=== PATIENT | female | born 1980 | race Caucasian/White ===

== ENCOUNTER → 2020-08-14 08:52 | Outpatient (CLI) | payer OTHER, MEDICAID, SELFPAY ==
[2020-08-14 20:18] LABS: Thyroid Stimulating Hormone 6.39 uIU/mL (0.47-4.68)
== END ==
PROVIDERS: PCP Physician Assistant; Referring Provider Physician Assistant; Visit Provider Physician Assistant
DX: E03.9 Hypothyroidism, unspecified (principal)
CPT/HCPCS: 84443

== ENCOUNTER → 2020-09-26 10:25 | Outpatient (CLI) | payer OTHER, MEDICAID, SELFPAY ==
[2020-09-26 20:02] LABS: Thyroid Stimulating Hormone 0.621 uIU/mL (0.47-4.68)
== END ==
PROVIDERS: PCP Physician Assistant; Visit Provider Physician Assistant
DX: E03.9 Hypothyroidism, unspecified (principal); R79.89 Other specified abnormal findings of blood chemistry
CPT/HCPCS: 84443

== ENCOUNTER → 2021-04-13 08:45 | Outpatient (CLI) | payer OTHER, MEDICAID, SELFPAY ==
[2021-04-13 19:16] LABS: Free T3, Triiodothyronine Free 3.58 pg/mL (2.77-5.27)
[2021-04-13 19:30] LABS: TSH w/ Reflex to FT4 1.86 uIU/mL (0.47-4.68)
== END ==
PROVIDERS: PCP Physician Assistant Medical; Visit Provider Physician Assistant Medical
DX: E03.9 Hypothyroidism, unspecified (principal); R79.89 Other specified abnormal findings of blood chemistry
CPT/HCPCS: 84443; 84481

== ENCOUNTER → 2021-04-19 08:19 | Outpatient (CLI) | payer OTHER, MEDICAID, SELFPAY ==
[2021-04-19 20:52] LABS: COVID19 - ORCAS (NP or Nasal) Negative (Negative)
== END ==
PROVIDERS: PCP Physician Assistant Medical; Referring Provider Family Medicine; Visit Provider Family Medicine
DX: Z20.822 Contact with and (suspected) exposure to COVID-19 (principal)
CPT/HCPCS: C9803; U0003

== ENCOUNTER → 2022-03-18 15:16 | Outpatient (CLI) | payer OTHER, SELFPAY ==
[2022-03-18 19:48] LABS: Add Manual Diff / Slide Review NO; Basophils Absolute Auto 100 /uL (0-100); Eosinophils Absolute Auto 100 /uL (0-450); Eosinophils Percent Auto 1.7 % (2-4); Hematocrit 35.3 % (36-46); Hemoglobin 11.9 g/dL (12.0-16.0); Lymphocytes Absolute Auto 2100 /uL (1100-4500); Lymphocytes Percent Auto 36.2 % (25-40); Mean Corpuscular HGB Conc 33.6 % (30-36); Mean Corpuscular Hemoglobin 29.4 PG (26-34); Mean Corpuscular Volume 87.6 fL (80-100); Monocytes Absolute Auto 300 /uL (0-900); Monocytes Percent Auto 5.6 % (3-14); Neutrophils Absolute Auto 3200 /uL (1500-7000); Neutrophils Percent Auto 55.5 % (50-75); Platelet Count 301 X10^3/uL (150-400); Red Blood Cell Count 4.03 X10^6/uL (4.0-5.2); White Blood Cell Count 5.7 X10^3/uL (4.5-11.0)
[2022-03-18 20:38] LABS: TSH w/ Reflex to FT4 0.29 uIU/mL (0.47-4.68)
[2022-03-19 13:38] LABS: Free T4, Direct Thyroxine 0.77 ng/dL (0.78-2.19)
[2022-03-19 14:33] LABS: HEMOLYSIS < 15 (0-50); Iron 69 ug/dL (37-170)
[2022-03-19 14:57] LABS: Percent Iron Saturation 21 % (15-50); Total Iron Binding Capacity 331 ug/dL (265-497); Transferrin 265 mg/dL (206-381)
[2022-03-19 15:37] LABS: Ferritin 23 ng/mL (6-137)
[2022-03-19 15:51] LABS: Vitamin B12 391 pg/mL (239-931)
[2022-03-19 15:55] LABS: Alanine Aminotransferase 20 IU/L (<35); Albumin 4.8 g/dL (3.5-5.0); Albumin Globulin Ratio 1.5 (1.0-2.8); Alkaline Phosphatase 52 U/L (38-126); Aspartate Aminotransferase 24 IU/L (14-36); BUN Creatinine Ratio 20.3 (6-22); Bilirubin Total 0.2 mg/dL (0.2-1.3); Blood Urea Nitrogen 13 mg/dL (7-17); Calcium 9.9 mg/dL (8.4-10.2); Carbon Dioxide 22 mmol/L (22-32); Chloride 111 mmol/L (98-107); Estimated Glomerular Filt Rate > 60 mL/min (>60); Globulin 3.1 g/dL (1.7-4.1); Glucose 88 mg/dL (70-100); HEMOLYSIS < 15 (0-50); Potassium 4.5 mmol/L (3.4-5.1); Sodium 146 mmol/L (137-145); Total Protein 7.9 g/dL (6.3-8.2)
== END ==
PROVIDERS: PCP Physician Assistant Medical; Visit Provider Physician Assistant
DX: E03.9 Hypothyroidism, unspecified (principal); D64.9 Anemia, unspecified
CPT/HCPCS: 80053; 82607; 82728; 83540; 83550; 84439; 84443; 85025

== ENCOUNTER → 2022-03-30 10:42 | Outpatient (CLI) | payer OTHER, SELFPAY ==
--- NOTE | 2022-03-30 10:43 | DI.MG.S_ITS ---
BILATERAL DIGITAL SCREENING MAMMOGRAM 3D/2D WITH CAD: 03/30/2022 CLINICAL: Routine screening. Family history of breast cancer. No prior exams were available for comparison. Both breasts are extremely dense, which lowers the sensitivity of mammography (category d />75% glandular tissue). Current study was also evaluated with a Computer Aided Detection (CAD) system. No significant masses, calcifications, or other findings are seen in either breast. IMPRESSION: NEGATIVE There is no mammographic evidence of malignancy. A 1 year screening mammogram is recommended. Based on Tyrer-Cuzick model (a risk assessment model), the patient's lifetime risk is 40.7% and her 10 year risk is 6.1%. If a patient has an elevated risk, a more comprehensive evaluation should be considered and/or a referral to a genetic counselor. The [employer], [employer], and NCCN Guidelines advise the consideration of Breast MRI as an adjunct to screening mammography in patients whose Lifetime risk to develop breast cancer is 20% or higher. This exam was interpreted at Station ID: [id number]. NOTE: For mammograms, a report in lay terms will be sent to the patient. Approximately 15% of breast malignancies will not be visualized mammographically. In the management of a palpable breast mass, a negative mammogram must not discourage biopsy of a clinically suspicious lesion. Electronically Signed By: Zeb lin/marques:04/01/2022 09:38:51 letter sent: Normal Exam ACR BI-RADS Category 1: Negative 3341F
== END ==
PROVIDERS: PCP Physician Assistant Medical; Referring Provider Physician Assistant; Visit Provider Physician Assistant
DX: Z12.31 Encounter for screening mammogram for malignant neoplasm of breast (principal); Z80.3 Family history of malignant neoplasm of breast
CPT/HCPCS: 77063; 77067

== ENCOUNTER 2022-12-12 09:04 | Day surgery (SDC) | payer OTHER, SELFPAY ==
[2022-12-12 09:29] VITALS: BP 108/72; PULSE 75; RESP 16; TEMP 35.9; O2SAT 99; BMI 22.7
--- NOTE | 2022-12-12 09:33 | P.HP_ITS ---
History of Present Illness History of Present Illness Date Patient Seen: 12/12/22 Time Patient Seen: 09:33 Chief complaint: SDC Narrative: Case is a 42-year-old woman who is here for a screening colonoscopy. She has never had 1 before. Her grandfather had colon cancer. [facility] Social History (Updated 05/10/21 @ 14:13 by Margarette Arce PA-C) Smoking Status: Never smoker Meds Home Medications and Allergies Home Medications Medication Instructions Recorded Confirmed Type levothyroxine 125 mcg tablet 125 mcg PO DAILY 12/12/22 12/12/22 History liothyronine 10 mcg/mL intravenous 10 mcg PO DAILY 12/12/22 12/12/22 History solution Allergies Allergy/AdvReac Type Severity Reaction Status Date / Time No Known Drug Allergies Allergy Verified 12/12/22 09:17 Exam Const General: healthy appearing Assessment & Plan Assessment and plan (1) Colon cancer screening: Status: Acute Plan Case is a 42 year old woman who is here for a colonoscopy for colon cancer screening. We reviewed the risks and benefits of the procedure and she would like to proceed.
--- NOTE | 2022-12-12 10:41 | PM.OP.COLON ---
Operative Date/Time/Diagnoses Date of procedure: 12/12/22 Time of procedure: 10:41 Pre-op diagnosis: Colon cancer screening Post-op diagnosis: same Procedure & Clinicians Study performed: Colonoscopy Same procedure as scheduled: Yes Surgeon: Dusty Larios Procedure Notes Procedure in detail: Surgeon: Dusty Larios MD Anesthesia: Bladimir Arcos CRNA Procedure: The patient was brought to the endoscopy suite, placed in left lateral decubitus position. The patient was connected to monitoring devices. A time-out was performed. Sedation was administered. Once the patient was adequately sedated, a digital rectal exam was performed and was normal. The scope was then inserted and advanced to the cecum where the appendiceal orifice was identified and photographed. The scope was then slowly withdrawn over greater than 6 minutes. The mucosa was thoroughly inspected. No abnormalities were found. The scope was retroflexed in the rectum. No abnormalities were seen. The scope was straightened and removed. The patient was awakened and brought to recovery. Scope withdrawal time: 6 minutes Sedation time: 12 minutes EBL: 0 Findings: Normal colon Post-procedure Recommendations: Colonoscopy in 10 years Disposition: PACU
[2022-12-12 10:42] VITALS: BP 89/60; PULSE 81; RESP 14; TEMP 36.5; O2SAT 99
[2022-12-12 10:47] VITALS: BP 92/67; PULSE 68; RESP 12; O2SAT 99
[2022-12-12 10:52] VITALS: BP 92/67; PULSE 66; RESP 14; O2SAT 100
[2022-12-12 10:58] VITALS: BP 96/68; PULSE 65; RESP 15; TEMP 37.1; O2SAT 100
== END 2022-12-12 11:06 | disposition home or self-care (01) ==
PROVIDERS: Referring Provider Surgery; Visit Provider Surgery
PROC: 0DJD8ZZ Inspection of Lower Intestinal Tract, Via Natural or Artificial Opening Endoscopic (ICD-10-PCS; CPT 45378; principal; 2022-12-12 09:45)
DX: Z12.11 Encounter for screening for malignant neoplasm of colon (principal)
CPT/HCPCS: 45378; J2704

== ENCOUNTER 2023-02-11 18:29 | Emergency (ER) | payer OTHER, SELFPAY ==
--- NOTE | 2023-02-11 18:43 | ED_ITS ---
HPI - General Adult General Chief complaint: Abdominal Pain Stated complaint: states hernia Time Seen by Provider: 02/11/23 18:31 History of Present Illness HPI narrative: 42-year-old female nonsmoker with history of hypothyroid presents with a painful lump around her umbilicus and is concerned about the potential of a hernia. She states that she is had issues off and on for the past few years but it was more painful than normal today. She denies any fever or chills. She is had no vomiting. She has no trouble moving her bowels and is passing gas without trouble. She states that she feels a worsening of pain and a small lump that seems to be worse with certain change in position. She denies any urinary complaint Related Data Home Medications Medication Instructions Recorded Confirmed levothyroxine 125 mcg tablet 125 mcg PO DAILY 12/12/22 12/12/22 liothyronine 10 mcg/mL intravenous 10 mcg PO DAILY 12/12/22 12/12/22 solution Allergies Allergy/AdvReac Type Severity Reaction Status Date / Time No Known Drug Allergies Allergy Verified 02/11/23 18:45 Review of Systems Review of Systems Narrative: GENERAL: Denies chills, fatigue, malaise, fever, sweats. HEENT: Denies sinus pain, ear pain, sore throat, difficulty swallowing, dizziness. RESPIRATORY: Denies dyspnea, cough, wheezing, hemoptysis, sputum. CARDIOVASCULAR: Denies chest pain, palpitations, orthopnea, edema, GASTROINTESTINAL: See HPI : Denies dysuria, frequency, incontinence, hematuria, urinary retention. MUSCULOSKELETAL: denies weakness, joint pain, or bony pain SKIN: Denies rash, skin lesions, or other NEUROLOGIC: Denies weakness, headache, numbness, change in speech, confusion, seizures, incoordination. PSYCHIATRIC: No concerning psychosocial issues. 12 point review of systems is negative except for those stated above Patient History Social History household members: spouse Smoking Status: Never smoker alcohol intake: current Smoking Status: Never smoker alcohol intake frequency: holidays/special occasions only Substance Use Type: marijuana Exam Narrative Exam Narrative: GEN: AOx3 and in mild distress EYES: Pupils are equal, round, and reactive to light and accommodation. Extraoccular muscles are intact bilaterally. There is no subconjunctival hemorrhage or exudate. CHEST: Lungs are clear to auscultation bilaterally and free of wheezes, rales, or rhonchi. Heart rate is regular rhythm, there are no murmurs, clicks, rubs, or gallops. There is no chest wall tenderness. ABD: Abdomen is soft and moderately tender in the umbilicus with a small palpable hernia that is easily reduced when she is laid flat. There is no guarding or rebound. Bowel sounds are normal in all 4 quadrants. There is no mass or organomegaly. EXT: Full painless ROM of all extremities with no loss of sensation or strength. SKIN: Warm, pink, and dry. No erythema or rash Initial Vital Signs Initial Vital Signs: Vital Signs Temperature 98.1 F 02/11/23 18:46 Pulse Rate 78 02/11/23 18:46 Respiratory Rate 18 02/11/23 18:46 Blood Pressure 138/78 02/11/23 18:46 Pulse Oximetry 100 02/11/23 18:46 Oxygen Delivery Method Room Air 02/11/23 18:46 Course Vital Signs Vital signs: Vital Signs - 8 hr 02/11/23 18:46 Temperature 98.1 F Pulse Rate 78 Respiratory Rate 18 Blood Pressure 138/78 Pulse Oximetry 100 Oxygen Delivery Method Room Air Medical Decision Making MDM Narrative Medical decision making narrative: [42] year old patient presents with painful umbilical hernia Prior Charts reviewed in our EMR Primary Historian: patient Patient's history and physical exam are reassuring, she is got a small palpable umbilical hernia that is easily reduced when she lays flat Patient's symptoms improved over duration of stay with above-stated therapies. Findings and discharge diagnosis discussed with patient/family followed by verbalization of understanding Return precautions discussed with patient/family whom verbalize understanding of diagnosis and plan Discharge Plan Departure Patient Disposition: Home Clinical Impression: Hernia, umbilical Instructions: Abdominal Hernia Activity Restrictions/Additional Instructions: *You have been diagnosed with [periumbilical hernia] *What to do: *Please continue to take your regular medications as directed. *Please follow up with Dr. Larios at [facility]. Let them know you were seen in the emergency department and we would like you seen in follow-up. I will electronically transmitted a copy of today's note * as we discussed please avoid activities that will increase the likelihood that your hernia comes out such as heavy lifting, straining on the toilet and other things that build up pressure in your abdomen *Return to Emergency Department if you should have any new, worsening or concerning symptoms, such as [fever greater than 101 F, shaking chills, worsening pain, persistent vomiting or other bothersome symptoms] Prescriptions: No Action liothyronine 10 mcg/mL Solution 10 mcg PO DAILY levothyroxine 125 mcg Tablet 125 mcg PO DAILY Referrals: Dusty Larios MD [Physician] - Stand Alone Forms: Patient Portal/API
[2023-02-11 18:46] VITALS: BP 138/78; PULSE 78; RESP 18; TEMP 36.7; O2SAT 100; BMI 23.5
== END 2023-02-11 19:00 | disposition home or self-care (01) ==
PROVIDERS: Emergency Provider Emergency Medicine
DX: K42.9 Umbilical hernia without obstruction or gangrene (principal)
CPT/HCPCS: 99281

== ENCOUNTER → 2023-04-25 08:24 | Outpatient (CLI) | payer OTHER, SELFPAY ==
--- NOTE | 2023-04-25 08:25 | DI.US.S_ITS ---
PROCEDURE: US ABDOMEN LIMITED INDICATIONS: Umbilical hernia without obstruction or gangrene TECHNIQUE: Real-time focused scanning was performed of the abdomen, with image documentation. COMPARISON: None. FINDINGS: There is a periumbilical hernia seen, which contains bowel. With Valsalva maneuver, the herniated contents measure up to 1.9 cm. IMPRESSION: Bowel containing periumbilical hernia. Surgical consultation is recommended. Dictated by: Anthony Wynne M.D. on 04/25/2023 at 15:49 Approved by: Anthony Wynne M.D. on 04/25/2023 at 15:50
== END ==
LOC: US 08:24
PROVIDERS: PCP Physician Assistant Medical; Referring Provider Naturopath; Visit Provider Naturopath
DX: K42.9 Umbilical hernia without obstruction or gangrene (principal); R10.13 Epigastric pain
CPT/HCPCS: 76705

== ENCOUNTER → 2023-06-16 16:34 | Outpatient (CLI) | payer OTHER, SELFPAY | PROVIDERS: PCP Physician Assistant Medical; Visit Provider Physician Assistant Medical | DX: N90.89 Other specified noninflammatory disorders of vulva and perineum (principal); B37.9 Candidiasis, unspecified; R10.2 Pelvic and perineal pain | CPT/HCPCS: 87491; 87529; 87591; 87661; 87798; 87801 ==

== ENCOUNTER → 2023-08-30 08:48 | Outpatient (CLI) | payer OTHER, SELFPAY ==
--- NOTE | 2023-08-30 08:50 | DI.MG.S_ITS ---
BILATERAL DIGITAL SCREENING MAMMOGRAM 3D/2D WITH CAD: 08/30/2023 CLINICAL: Routine screening. Family history of breast cancer. High risk screening. Comparison is made to exam dated: 03/30/2022 mammogram - [facility]. Both breasts are extremely dense, which lowers the sensitivity of mammography (category d />75% glandular tissue). Current study was also evaluated with a Computer Aided Detection (CAD) system. There are benign post operative findings in both breasts from reduction mammoplasty. No significant masses, calcifications, or other findings are seen in either breast. There has been no significant interval change. IMPRESSION: BENIGN There is no mammographic evidence of malignancy. A 1 year screening mammogram is recommended. Based on Tyrer-Cuzick model (a risk assessment model), the patient's lifetime risk is 40.5% and her 10 year risk is 7.1%. If a patient has an elevated risk, a more comprehensive evaluation should be considered and/or a referral to a genetic counselor. The [employer], [employer], and NCCN Guidelines advise the consideration of Breast MRI as an adjunct to screening mammography in patients whose Lifetime risk to develop breast cancer is 20% or higher. This exam was interpreted at Station ID: [id number]. NOTE: For mammograms, a report in lay terms will be sent to the patient. Approximately 15% of breast malignancies will not be visualized mammographically. In the management of a palpable breast mass, a negative mammogram must not discourage biopsy of a clinically suspicious lesion. Electronically Signed By: Mirza Schmidt M.D. aty/:08/30/2023 12:16:40 letter sent: Normal Exam ACR BI-RADS Category 2: Benign Finding(s) 3342F
== END ==
PROVIDERS: PCP Physician Assistant Medical; Referring Provider Physician Assistant Medical; Visit Provider Physician Assistant Medical
DX: Z12.31 Encounter for screening mammogram for malignant neoplasm of breast (principal); R92.323 Mammographic fibroglandular density, bilateral breasts; Z80.3 Family history of malignant neoplasm of breast
CPT/HCPCS: 77063; 77067

== ENCOUNTER → 2024-10-25 11:06 | Outpatient (CLI) | payer OTHER, SELFPAY ==
--- NOTE | 2024-10-25 11:07 | DI.MG.S_ITS ---
MM screening mammo BI: 10/25/2024. BI-RADS: 1 CLINICAL: 44-year old female for bilateral screening mammogram. Tyrer-Cuzick lifetime risk of 37.3%. No personal or first-degree family history of breast cancer. Current reported family history of breast cancer: maternal aunt and paternal aunt. The patient reports testing negative for BRCA gene mutation. The patient is status-post reduction mammoplasty. PRIOR EXAMS 08/30/2023, 03/30/2022. MAMMOGRAPHY TECHNIQUE: 2D and 3D (tomosynthesis) digital mammographic views obtained, with additional images as needed for full coverage. Current study was also evaluated with a Computer Aided Detection (CAD) system. DENSITY D. The breasts are extremely dense, which lowers the sensitivity of mammography. MAMMOGRAPHY FINDINGS Bilateral: No suspicious mass, asymmetry, microcalcification, or other abnormality seen. IMPRESSION: * No evidence of malignancy. RECOMMENDATIONS Bilateral * According to the Tyrer-Cuzick Risk Assessment Model, based on the information provided your patient has a greater than 20% lifetime risk for developing breast cancer. Consider supplemental screening with breast MRI and participation in a high risk screening program. * Annual screening mammography. OVERALL ASSESSMENT CATEGORY BI-RADS-1: Negative. The [employer] recommends annual screening mammography beginning at age 40 for women with average risk of breast cancer. ELECTRONICALLY SIGNED: Mirza Schmidt M.D. on 10/25/2024 at 05:09:15 PM PT Interpreting Station ID: [id number]
== END ==
LOC: MAMMO 11:07
PROVIDERS: PCP Physician Assistant Medical; Referring Provider Naturopath; Visit Provider Naturopath
DX: Z12.31 Encounter for screening mammogram for malignant neoplasm of breast (principal); Z80.3 Family history of malignant neoplasm of breast; R92.343 Mammographic extreme density, bilateral breasts
CPT/HCPCS: 77063; 77067